=== PATIENT | female | born 2000 | race Caucasian/White ===

== ENCOUNTER 2022-02-22 14:31 | Outpatient (CLI) | payer OTHER, SELFPAY ==
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
== END 2022-02-22 14:32 | disposition home or self-care (01) ==
PROVIDERS: PCP Pediatrics; Visit Provider Nurse Practitioner Family
DX: Z87.442 Personal history of urinary calculi (principal); R10.9 Unspecified abdominal pain
CPT/HCPCS: 74018

== ENCOUNTER 2024-05-14 15:57 | Emergency (ER) | payer OTHER, SELFPAY ==
[2024-05-14 15:58] VITALS: BP 137/100; PULSE 115; RESP 18; TEMP 36.6; O2SAT 99
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
[2024-05-14 17:17] VITALS: BP 128/94; PULSE 91; RESP 16; TEMP 36.6; O2SAT 100
== END 2024-05-14 17:19 | disposition home or self-care (01) ==
PROVIDERS: Emergency Provider Physician Assistant; PCP Pediatrics
DX: S50.01XA Contusion of right elbow, initial encounter (principal); V59.40XA Driver of pick-up truck or van injured in collision with unspecified motor vehicles in traffic accident, initial encounter
CPT/HCPCS: 73080; 99283

== ENCOUNTER 2024-05-25 11:49 | Outpatient (CLI) | payer OTHER, SELFPAY ==
--- NOTE | 2024-05-25 11:56 | XR_ITS ---
WS: [id number] Exam: XR elbow RT min 3V* [id number] Date/Time of Exam: 05/25/2024 11:56 AM Reason For Exam: Elbow joint pain right Findings: There are no fractures, soft tissue swelling, or calcifications. The elbow shows normal bony alignme nt. There is no irregularity of the bony architecture. XR/XR elbow RT min 3V* [id number] IMPRESSION: Negative RIGHT elbow.
== END 2024-05-25 11:50 | disposition home or self-care (01) ==
LOC: RAD 11:50
PROVIDERS: PCP Pediatrics; Visit Provider Family Medicine
DX: M25.521 Pain in right elbow (principal)
CPT/HCPCS: 73080